=== PATIENT | male | born 1955 | race Caucasian/White ===

== ENCOUNTER 2019-03-19 15:29 | Inpatient (IN) | payer SELFPAY ==
[~2019-03-19] VITALS: Ht 185.4 cm; Wt 117.0 kg
[2019-03-19 15:35] VITALS: BP 172/95
[2019-03-19] MEDS ORDERED: NACL 0.9% 1,000 ML IV ONE ×2 (15:56→17:35)
[2019-03-19] MEDS ORDERED: MORPHINE SULFATE 4 MG/ML SYR IVP ONE (16:00)
[2019-03-19] MEDS ORDERED: FAMOTIDINE 20 MG/2 ML VIAL IVP ONE (16:00)
[2019-03-19] MEDS ORDERED: KETOROLAC 30 MG/ML VIAL IVP ONE (16:00)
[2019-03-19] MEDS ORDERED: ONDANSETRON 4 MG/2 ML VIAL IVP ONE (16:00)
[2019-03-19] MEDS ORDERED: GLYCOPYRROLATE 0.2 MG/ML VIAL IV ONE (16:05)
[2019-03-19 16:31] LABS: BASOPHILS % (AUTO) 0.1 % (0.0-2.0); HEMATOCRIT 50.2 % (36-52); HEMOGLOBIN 16.7 g/dL (12.0-18.0); LYMPHOCYTES # (AUTO) 0.6 K/uL (2.0-11.5); LYMPHOCYTES % (AUTO) 5.1 % (20.5-51.1); MEAN CORPUSCULAR HEMOGLOBIN 32 pg (27-31); MEAN CORPUSCULAR HGB CONC 33 g/dL (33-37); MEAN CORPUSCULAR VOLUME 97.6 fL (80-94); MONOCYTES # (AUTO) 0.7 K/uL (0.8-1.0); NEUTROPHILS # (AUTO) 10.4 K/uL (1.8-7.7); NEUTROPHILS % (AUTO) 88.8 % (42.2-75.2); PLATELET COUNT (AUTO) 211 K/uL (140-450); RED BLOOD CELL COUNT(AUTO) 5.14 MIL/uL (4.20-6.10); RED CELL DISTRIBUTION WIDTH 13.7 % (11.6-13.7); WHITE BLOOD COUNT (AUTO) 11.7 K/uL (4.8-10.8)
[2019-03-19 16:33] LABS: APPEARANCE,URINE CLEAR (CLEAR); BILIRUBIN,URINE 1+ (NEGATIVE); BLOOD, URINE 1+ (NEGATIVE); LEUKOCYTE ESTERASE ,URINE NEGATIVE (NEGATIVE); NITRITE, URINE NEGATIVE (NEGATIVE); PH,URINE 5.5 (5.0-9.0); UGLUCOSE NEGATIVE (NEGATIVE)
[2019-03-19 16:34] LABS: COLOR,URINE AMBER (YELLOW)
[2019-03-19 16:46] LABS: WBC,URINE 0 /HPF (0-5)
--- NOTE | 2019-03-19 16:50 | NUR ---
IV ESTABLISHED, LAB DRAWN, URINE SENT BY STUDENT. CONTINUOUS CARDIAC MONITORING INITIATED. EKG SHOWN TO OLIVIA. PT ASYMPTOMATIC AT PRESENT. MENTATION APPROPRIATE. COHERENT.
[2019-03-19 16:58] LABS: PROTHROMBIN TIME 10.2 secs (10.8-13.4)
[2019-03-19 17:00] LABS: ANION GAP 15.9 (8-16); CARBON DIOXIDE 25.5 mmol/L (21-32); CREATININE 1.4 mg/dL (0.7-1.3); POTASSIUM 4.4 mmol/L (3.5-5.1); TOTAL BILIRUBIN 3.1 mg/dL (0.0-1.0)
--- NOTE | 2019-03-19 17:13 | NUR ---
PT LEFT TO CT VIA RNEY
[2019-03-19] MEDS ORDERED: metroNIDAZOLE 500 MG/NS PREMIX 100 ML IV ONE (17:35)
[2019-03-19] MEDS ORDERED: NACL 0.9% 1,000 ML IV SCH (17:45)
[2019-03-19] MEDS ORDERED: ACETAMINOPHEN 325 MG TAB PO PRN (17:45)
[2019-03-19] MEDS ORDERED: HYDROcodone/APAP 5/325 MG 1 TAB TAB PO PRN (17:45)
[2019-03-19] MEDS ORDERED: MORPHINE SULFATE 2 MG/ML SYR IVP PRN (17:45)
[2019-03-19] MEDS ORDERED: ONDANSETRON 4 MG/2 ML VIAL IM/IVP PRN (17:45)
[2019-03-19] MEDS ORDERED: cefTRIAXone 1,000 MG VIAL ONE (17:48)
[2019-03-19] MEDS: NACL 0.9% 1,000 ML IV SCH ×2 (17:50→18:58)
[2019-03-19] MEDS ORDERED: METO25TA PO (17:56)
[2019-03-19] MEDS ORDERED: ORE25 PO (17:56)
[2019-03-19 18:08] LABS: BARBITURATE, URINE NEG. ng/ml (NEG <=200); BENZODIAZEPINE, URINE NEG. ng/mL (NEG <=200); CANNABINOID, URINE NEG. ng/mL (NEG <=50); COCAINE, URINE NEG. ng/mL (NEG <=300); OPIATE, URINE NEG. ng/mL (NEG <=2000); PHENCYCLIDINE SCREEN,URINE NEG. ng/mL (NEG <=25)
[2019-03-19 18:33] LABS: URIC ACID 6.5 mg/dL (2.6-7.2)
[2019-03-19 18:46] LABS: MAGNESIUM 1.8 mg/dL (1.8-2.4); PHOSPHORUS 3.2 mg/dL (2.5-4.9); THYROID STIMULATING HORMONE 1.07 uIU/mL (0.34-3.74)
--- NOTE | 2019-03-19 19:14 | NUR ---
CONTINUED ENSORED. TO KYLE. HANDLEY
--- NOTE | 2019-03-19 19:42 | NUR ---
PT APPEAR TO BE IN NO DISTRESS AT THIS TIME. PT C/O ABDOMINAL PAIN. PAIN 08/19. PT VSS. PT HR HIGH 40S. PT DENIES FATIGUE, DIZZINESS OR FEELS LIKE HE IS GOING TO PASS OUT. PT STATES NORMAL HR AROUND 50-60. PT DENIES N/V/D AT THIS TIME. FAMILY AT BEDSIDE. WAITING FOR ROOM TO BECOME AVAILABLE ON FLOOR.
[2019-03-19 20:00] VITALS: BP 154/73
--- NOTE | 2019-03-19 20:00 | NUR ---
RECEIVED PT FROM ER NURSE, FARIDA. PT CAME IN [facility] AND ABLE TO AMBULATE TO [facility] BED. NO SOB OR ANY RESPIRATORY DISTRESS NOTED. BREATHING EVEN AND UNLABORED. IV SITE ON LAC 20G PATENT, INTACT AND ASYMPTOMATIC. SKIN INTACT, WARM AND DRY TO TOUCH. MRSA SWAB DONE, VS CHECKED, BOARD UPDATED, ALL SAFETY MEASURE ARE MET. ORIENT ROOM TO PT INCLUDING HOW TO USE CALL LIGHT. BED IN LOW POSITION, CALL LIGHT WITHIN REACH.
--- NOTE | 2019-03-19 20:00 | NUR ---
Pt report given to EMMANUELLE GARVEY. Transfer of care at this time. PT TRANSFERED TO BED VIA WALK ASSIST.
--- NOTE | 2019-03-19 22:10 | NUR ---
PT SLEEPING IN BED COMFORTABLY. NO ACUTE DISTRESS NOTED.
--- NOTE | 2019-03-19 23:08 | NUR ---
PT C/O 6 ABD PAIN, GIVEN NORCO MD ORDERED. PT TOLERATED WELL. WILL CONTINUE TO MONITOR.
[2019-03-20] VITALS: BP 134/58
--- NOTE | 2019-03-20 00:10 | NUR ---
VS CHECKED, WITHIN PT'S BASELINE. WILL CONTINUE TO MONITOR.
[2019-03-20] MEDS: NACL 0.9% 1,000 ML IV SCH ×4 (02:33→20:38)
[2019-03-20] MEDS: KETOROLAC 30 MG/ML VIAL IVP SCH ×2 (02:38→08:17)
--- NOTE | 2019-03-20 02:38 | NUR ---
GIVEN TORADOL MD ORDERED. PT TOLERATED WELL.
[2019-03-20 04:00] VITALS: BP 142/71
[2019-03-20] MEDS: metroNIDAZOLE 500 MG/NS PREMIX 100 ML IV SCH ×3 (05:10→20:23)
--- NOTE | 2019-03-20 05:10 | NUR ---
GIVEN FLAGYL MD ORDERED. PT TOLERATED WELL.
--- NOTE | 2019-03-20 06:41 | NUR ---
PT SLEEPING IN BED. NO ACUTE DISTRESS NOTED.
[2019-03-20] MEDS ORDERED: LOSA100T51 PO (06:52)
[2019-03-20] MEDS ORDERED: METO100T14 PO (06:53)
[2019-03-20 07:09] LABS: BASOPHILS % (AUTO) 0.1 % (0.0-2.0); EOSINOPHILS % (AUTO) 0.1 % (0.0-4.0); HEMATOCRIT 47.4 % (36-52); HEMOGLOBIN 15.6 g/dL (12.0-18.0); LYMPHOCYTES # (AUTO) 1.2 K/uL (2.0-11.5); LYMPHOCYTES % (AUTO) 10.3 % (20.5-51.1); MEAN CORPUSCULAR HEMOGLOBIN 32 pg (27-31); MEAN CORPUSCULAR HGB CONC 33 g/dL (33-37); MONOCYTES # (AUTO) 0.9 K/uL (0.8-1.0); MONOCYTES % (AUTO) 7.8 % (1.7-9.3); NEUTROPHILS # (AUTO) 9.6 K/uL (1.8-7.7); NEUTROPHILS % (AUTO) 81.7 % (42.2-75.2); PLATELET COUNT (AUTO) 196 K/uL (140-450); RED BLOOD CELL COUNT(AUTO) 4.84 MIL/uL (4.20-6.10); WHITE BLOOD COUNT (AUTO) 11.8 K/uL (4.8-10.8)
[2019-03-20 07:15] LABS: ANION GAP 15.4 (8-16); CARBON DIOXIDE 24.5 mmol/L (21-32); CREATININE 1.3 mg/dL (0.7-1.3); POTASSIUM 4.9 mmol/L (3.5-5.1)
[2019-03-20 07:32] LABS: CHOL/HDL RATIO 7.1 (1-4.5)
--- NOTE | 2019-03-20 07:38 | NUR ---
RECEIVED PT FROM ROD FILLER RN FOR CONTINUITY OF CARE. PT IS AAOX4, COOPERATIVE. PT ABLE TO MAKE NEEDS KNOWN. PT GREAT HISTORIAN. PT ABLE TO AMBULATE. SKIN INTACT. EXPLAINED POC TO PT AND PT VERBALIZED UNDERSTANDING. ALL NEEDS CURRENTLY MET. WILL CONTINUE TO ROUND FREQUENTLY ON PT. BED IN LOW POSITION, CALL LIGHT WITHIN REACH.
[2019-03-20 08:00] VITALS: BP 158/87
[2019-03-20] MEDS: HYDROCHLOROTHIAZIDE 25 MG TAB PO SCH (08:16)
[2019-03-20] MEDS: PANTOPRAZOLE 40 MG INJ VIAL IVP SCH (08:17)
--- NOTE | 2019-03-20 08:50 | NUR ---
PATIENT HAS BEEN SCREENED AND CATEGORIZED MODERATE NUTRITION RISK. PATIENT WILL BE SEEN WITHIN 3-5 DAYS OF ADMISSION. 03/22/19 03/24/[address]
[2019-03-20] MEDS ORDERED: METOPROLOL 25 MG TAB PO SCH (09:00)
[2019-03-20] MEDS ORDERED: DEXTROSE 50% 50 ML SYR IVP PRN (09:00)
[2019-03-20] MEDS ORDERED: INSULIN LISPRO SLIDING SCALE 100 UNITS/ML VIAL SUBQ PRN (09:00)
[2019-03-20] MEDS ORDERED: KETOROLAC 30 MG/ML VIAL IVP PRN (09:00)
--- NOTE | 2019-03-20 09:41 | NUR ---
ADMINISTERED MORNING MEDS TO PT. PT TOLERATED WELL. ALL NEEDS MET. WILL CONTINUE TO ROUND FREQUENTLY ON PT. BED IN LOW POSITION, CALL LIGHT WITHIN REACH.
[2019-03-20] MEDS ORDERED: LOSARTAN 50 MG TAB PO SCH (10:00)
[2019-03-20] MEDS ORDERED: BLOOD GLUCOSE MONITORING 1 DEV DEV FS SCH (11:30)
--- NOTE | 2019-03-20 11:36 | NUR ---
PT RESTING IN BED READING BOOK. ALL NEEDS MET. PT DENIES PAIN OR DISTRESS AT THIS TIME. WILL CONTINUE TO ROUND FREQUENTLY ON PT.
[2019-03-20 12:00] VITALS: BP 151/66
[2019-03-20] MEDS: HYDROcodone/APAP 7.5/325 MG 1 TAB PO PRN ×2 (12:05→20:23)
--- NOTE | 2019-03-20 13:20 | NUR ---
DC PLANNING 63 YRS OLD MALE PT WAS ADMITTED FROM HOME WITH A DX OF CHOLECYSTITIS AND PANCREATITIS. PT HAS A HX OF HTN , HIATAL HERNIA AND HEPATOMEGALY . CT ABD SHOWS ACUTE PANCREATITIS LIPASE 30,900 . ADMINISTER IV FLAGYL AND ROCEPHIN ,IVF GI CONSULT WITH DR KENNEDY. SURGEON RECOMMENDED GI CONSULT AND PLAN TO LAP HUY POSSIBLE OPEN CHOLECYSTECTOMY. KEEP PT NPO , WAITING FOR GI CONSULT. CM TO FOLLOW. Addendum: 03/22/19 at 1020 by Kim Alvarez CM DC PLANNING LATE ENTRY 03/21/19 1400 CONTINUE IV ROCEPHIN AND FLAGYL , WAITING FOR GI CONSULT WITH DR SERNA Addendum: 03/22/19 at 1026 by Kim Alvarez DC PLANNING DR SERNA (GI) SEEN PATIENT RECOMMENDED SURGEON TO CONSIDER LAP HUY AND INTRAOPERATIVE CHOLANGIOGRAM AND IF PT NEEDS ERCP THAT COULD BE CONSIDERED AFTER SURGERY . CM TO FOLLOW
--- NOTE | 2019-03-20 13:42 | NUR ---
PT RESTING IN BED. ALL NEEDS MET. WILL CONTINUE TO ROUND FREQUENTLY ON PT.
--- NOTE | 2019-03-20 15:24 | NUR ---
PT ASLEEP. WILL CONTINUE TO ROUND FREQUENTLY ON PT.
[2019-03-20 16:00] VITALS: BP 145/80
--- NOTE | 2019-03-20 17:18 | NUR ---
PT SLEEPING. ALL NEED MET. WILL CONTINUE TO ROUND ON PT.
--- NOTE | 2019-03-20 19:25 | NUR ---
REPORT GIVEN TO QUALITY CLOTH TESTER RN FOR CONTINUATION OF CARE. BED IN LOW POSITION, PATIENT IS IN STABLE CONDITION, NO SIGNS OF DISTRESS.
--- NOTE | 2019-03-20 19:30 | NUR ---
RECEIVED BEDSIDE REPORT FROM DAY SHIFT NURSE FOR CONTINUITY OF CARE. PT IS AAOX4, COOPERATIVE. PT ABLE TO MAKE NEEDS KNOWN. PT ABLE TO AMBULATE. SKIN INTACT. IV SITE ON LAC, 20G, PATENT, INTACT, AND ASYMPTOMATIC, RUNNING FLUID MD ORDERED. EXPLAINED POC TO PT AND PT VERBALIZED UNDERSTANDING. ALL NEEDS CURRENTLY MET. WILL CONTINUE TO ROUND FREQUENTLY ON PT. BED IN LOW POSITION, CALL LIGHT WITHIN REACH.
--- NOTE | 2019-03-20 19:49 | NUR ---
ENDORSED PT TO DRYING FRAME OPERATOR FOR CONTINUITY OF CARE. PT IN STABLE CONDITION AT THIS TIME.
[2019-03-20 20:00] VITALS: BP 133/65
--- NOTE | 2019-03-20 20:23 | NUR ---
GIVEN FLAGYL MD ORDERED. PT C/O 09/19 ABD PAIN AND FEVER 100.7 GIVEN NORCO MD ORDERED. WILL RE ASSESS FOR FEVER.
--- NOTE | 2019-03-20 21:20 | NUR ---
CHECKED BT, 98.9. PT STATED HE FEELS BETTER.
--- NOTE | 2019-03-20 23:59 | NUR ---
VS CHECKED, WITHIN PT'S BASELINE. WILL CONTINUE TO MONITOR.
[2019-03-21] VITALS: BP 119/53
[2019-03-21] MEDS: HYDROcodone/APAP 7.5/325 MG 1 TAB PO PRN ×3 (01:50→23:37)
[2019-03-21] MEDS: NACL 0.9% 1,000 ML IV SCH ×4 (02:00→16:38)
--- NOTE | 2019-03-21 02:10 | NUR ---
PT SLEEPING IN BED. NO ACUTE DISTRESS NOTED.
--- NOTE | 2019-03-21 03:59 | NUR ---
VS CHECKED, WITHIN PT'S BASELINE, WILL CONTINUE TO MONITOR.
[2019-03-21 04:00] VITALS: BP 111/69
[2019-03-21] MEDS: metroNIDAZOLE 500 MG/NS PREMIX 100 ML IV SCH ×3 (05:47→20:22)
--- NOTE | 2019-03-21 05:47 | NUR ---
GIVEN FLAGYL MD ORDERED. PT TOLERATED WELL.
--- NOTE | 2019-03-21 06:41 | NUR ---
PT LYING IN BED. NO ACUTE DISTRESS NOTED. PT IN STABLE CONDITION.
[2019-03-21 07:00] LABS: BASOPHILS % (AUTO) 0.3 % (0.0-2.0); EOSINOPHILS # (AUTO) 0.1 K/uL (0-0.4); EOSINOPHILS % (AUTO) 0.8 % (0.0-4.0); HEMATOCRIT 45.5 % (36-52); HEMOGLOBIN 14.8 g/dL (12.0-18.0); LYMPHOCYTES # (AUTO) 1.2 K/uL (2.0-11.5); MEAN CORPUSCULAR HEMOGLOBIN 32 pg (27-31); MEAN CORPUSCULAR HGB CONC 33 g/dL (33-37); MEAN CORPUSCULAR VOLUME 98.2 fL (80-94); MONOCYTES # (AUTO) 1.6 K/uL (0.8-1.0); MONOCYTES % (AUTO) 10.6 % (1.7-9.3); NEUTROPHILS # (AUTO) 11.9 K/uL (1.8-7.7); NEUTROPHILS % (AUTO) 80.3 % (42.2-75.2); PLATELET COUNT (AUTO) 179 K/uL (140-450); RED BLOOD CELL COUNT(AUTO) 4.64 MIL/uL (4.20-6.10); RED CELL DISTRIBUTION WIDTH 13.4 % (11.6-13.7); WHITE BLOOD COUNT (AUTO) 14.8 K/uL (4.8-10.8)
--- NOTE | 2019-03-21 07:30 | NUR ---
RECEIVED PT FROM NIGHT NURSE. PT AAOX4 IN BED. DENIES PAIN, NO DISTRESS NOTED. RESPIRATIONS EVEN AND UNLABORED ON ROOM AIR. SKIN INTACT, AMBULATORY. IV IN PLACE PATENT AND ASYMPTOMATIC INFUSING PER ORDER IN L AC 20G. BED IN LOW POSITION, SAFETY MEASURES IN PLACE. CALL LIGHT WITHIN REACH. WILL CONTINUE TO MONITOR.
[2019-03-21 08:00] VITALS: BP 136/74
[2019-03-21 08:31] LABS: T4 (THYROXINE) 6.3 ug/dL (4.5-12.0)
[2019-03-21 08:31] LABS: HEPATITIS A ANTIBODY IGM Negative (Negative); HEPATITIS B CORE AB TOTAL Negative (Negative); HEPATITIS B SURFACE ANTIBODY Non Reactive (.); HEPATITIS B SURFACE ANTIGEN Negative (Negative)
[2019-03-21 08:42] LABS: ANION GAP 16.6 (8-16); CARBON DIOXIDE 23.3 mmol/L (21-32); CREATININE 1.3 mg/dL (0.7-1.3); POTASSIUM 3.9 mmol/L (3.5-5.1)
[2019-03-21] MEDS: PANTOPRAZOLE 40 MG INJ VIAL IVP SCH (09:38)
[2019-03-21] MEDS: HYDROCHLOROTHIAZIDE 25 MG TAB PO SCH (09:38)
[2019-03-21] MEDS: LOSARTAN 50 MG TAB PO SCH (09:39)
--- NOTE | 2019-03-21 09:43 | NUR ---
MEDICATIONS ADMINISTERED PER ORDER. PT TOLERATED WELL. NO DISTRESS NOTED, DENIES PAIN. WILL CONTINUE TO MONITOR.
[2019-03-21 11:08] LABS: ALBUMIN 3.1 g/dL (3.4-5.0); BILIRUBIN,DIRECT 0.4 mg/dL (0.0-0.3); TOTAL BILIRUBIN 1.8 mg/dL (0.0-1.0)
--- NOTE | 2019-03-21 11:51 | NUR ---
MEDICATIONS ADMINISTERED PER ORDER. PT TOLERATED WELL. NO DISTRESS NOTED. WILL CONTINUE TO MONITOR.
[2019-03-21 12:00] VITALS: BP 144/75
--- NOTE | 2019-03-21 14:29 | NUR ---
MEDICATIONS ADMINISTERED PER ORDER. PT TOLERATED WELL. NO DISTRESS NOTED. DENIES PAIN. WILL CONTINUE TO MONITOR.
--- NOTE | 2019-03-21 14:34 | NUR ---
Casing Mixer Note: Basic Screen: Yes High Risk DC Screen Sarah Ann: GAURANG Mcdaniel Relationship: Pre-Admission Living Arrangements: Lives with Other Prior ADL Independent Current Home Health Name/Tel: N/A Current DME/02 Name/Tel: N/A Current Hospice Name/Tel: N/A Current Dialysis Name/Tel: N/A Healthcare Decision Maker: Patient Advance Directive No - REFUSED Patient/Family Have Educational Needs No Information Taught: Advance Directive Person Taught: Patient Teaching Tools: Verbal Factors Affecting Learning: None Participation Level: Refused Evaluation: Verbalizes Understanding Needs Additional Education: No Discipline: Case Mgt/Social Svcs Tentative Discharge Plan/Destination: No Needs Identified Will require assistance post discharge: No Referred to Broach Grinder: No Tentative Discharge Plan Summary: Patient is a 63 y/o male admitted for abdominal pain. Patient has PMHX of HTN. Patient was admitted from temporary address in [place], [place] but is a resident of [place]. SW verified demographics with patient. Patiennt denies mental health history and substance abuse history. Patient stated he is residing in [place] temporarily due to a yazidi event. Patient's tentative plan after discharge is to return to [place] and to [place] thereafter. No further needs identified. Signature: RASHAAD Paredes Date: Mar 21, 2019 Time: 14:34
[2019-03-21 16:00] VITALS: BP 131/72
--- NOTE | 2019-03-21 16:18 | NUR ---
VITAL SIGNS MONITORED AT THIS TIME. PT IN STABLE CONDITION. DENIES PAIN. SAFETY MEASURES IN PLACE. CALL LIGHT WITHIN REACH. WILL CONTINUE TO MONITOR.
--- NOTE | 2019-03-21 18:25 | NUR ---
PT SITTING IN CHAIR. DENIES PAIN. NO DISTRESS NOTED. SAFETY MEASURES IN PLACE. CALL LIGHT WITHIN REACH. WILL CONTINUE TO MONITOR.
--- NOTE | 2019-03-21 19:00 | NUR ---
REPORT GIVEN TO NIGHT NURSE FOR CONTINUITY OF CARE.
--- NOTE | 2019-03-21 19:01 | NUR ---
REPORT RECEIVED FROM AM NURSE AT BEDSIDE. PT IN STABLE CONDITION. AAOX4. INTRODUCED SELF TO PT. BOARD UPDATED. PT HAS COMPLAINTS OF PAIN. WILL MEDICATE. NO SOB. AFEBRILE. PT IS AMBULATORY. IV SITE L AC 20G RUNNING NS@150ML/HR PATENT AND INTACT. SKIN WARM, DRY, AND INTACT WITH NO OPEN WOUNDS. BED LOCKED IN LOW POSITION. CALL ANDRADE WITHIN REACH. SAFETY PRECAUTION IN PLACE. ALL NEEDS MET AT THIS TIME.
--- NOTE | 2019-03-21 19:37 | NUR ---
NORCO GIVEN FOR 6/10 ABDOMINAL PAIN. PT TOLERATED WELL.
[2019-03-21 20:00] VITALS: BP 151/80
--- NOTE | 2019-03-21 20:22 | NUR ---
ANOOP HUNG AND RUNNING. PT TOLERATING WELL.
--- NOTE | 2019-03-21 22:00 | NUR ---
PT SLEEPING COMFORTABLY BUT AROUSABLE. NO S/S OF DISTRESS NOTED. TELE MONITORING. WILL CONTINUE TO MONITOR.
--- NOTE | 2019-03-21 23:37 | NUR ---
NORCO GIVEN FOR 6/10 ABDOMINAL PAIN. PT TOLERATED WELL.
[2019-03-22] VITALS: BP 136/83
--- NOTE | 2019-03-22 01:45 | NUR ---
PT SLEEPING COMFORTABLY BUT AROUSABLE. NO S/S OF DISTRESS NOTED. NO COMPLAINTS OF PAIN. NO SOB. AFEBRILE. WILL CONTINUE TO MONITOR.
--- NOTE | 2019-03-22 03:30 | NUR ---
PT SLEEPING COMFORTABLY BUT AROUSABLE. NO S/S OF DISTRESS NOTED. RESPIRATIONS EVEN, UNLABORED, AND WNL. WILL CONTINUE TO MONITOR.
[2019-03-22 04:00] VITALS: BP 120/72
[2019-03-22] MEDS: metroNIDAZOLE 500 MG/NS PREMIX 100 ML IV SCH ×3 (04:01→20:16)
--- NOTE | 2019-03-22 04:01 | NUR ---
ANOOP HUNG AND RUNNING. PT TOLERATING WELL.
--- NOTE | 2019-03-22 05:40 | NUR ---
PT SLEEPING COMFORTABLY BUT AROUSABLE. NO S/S OF DISTRESS NOTED. NO COMPLAINTS OF PAIN. NO SOB. AFEBRILE. WILL CONTINUE TO MONITOR.
--- NOTE | 2019-03-22 06:45 | NUR ---
PT SLEEPING COMFORTABLY IN BED BUT AROUSABLE. NO S/S OF DISTRESS NOTED. PT IN STABLE CONDITION.
[2019-03-22 06:50] LABS: BASOPHILS % (AUTO) 0.1 % (0.0-2.0); EOSINOPHILS # (AUTO) 0.2 K/uL (0-0.4); EOSINOPHILS % (AUTO) 1.7 % (0.0-4.0); HEMATOCRIT 41.6 % (36-52); HEMOGLOBIN 13.9 g/dL (12.0-18.0); LYMPHOCYTES # (AUTO) 1.1 K/uL (2.0-11.5); LYMPHOCYTES % (AUTO) 8.1 % (20.5-51.1); MEAN CORPUSCULAR HEMOGLOBIN 33 pg (27-31); MEAN CORPUSCULAR HGB CONC 33 g/dL (33-37); MEAN CORPUSCULAR VOLUME 97.8 fL (80-94); MONOCYTES # (AUTO) 1.4 K/uL (0.8-1.0); MONOCYTES % (AUTO) 10.3 % (1.7-9.3); NEUTROPHILS # (AUTO) 10.6 K/uL (1.8-7.7); NEUTROPHILS % (AUTO) 79.8 % (42.2-75.2); PLATELET COUNT (AUTO) 163 K/uL (140-450); RED BLOOD CELL COUNT(AUTO) 4.25 MIL/uL (4.20-6.10); RED CELL DISTRIBUTION WIDTH 13.4 % (11.6-13.7); WHITE BLOOD COUNT (AUTO) 13.3 K/uL (4.8-10.8)
--- NOTE | 2019-03-22 07:15 | NUR ---
PT IS ALERT AND ORIENTED X4, VERBALLY RESPONSIVE. IV INTACT AND PATENT TO LEFT AC 20G WITH IVF NS INFUSING @ 150ML/HR. NO S/S OF DISTRESS NOTED. CALL LIGHT WITHIN REACH.
[2019-03-22 07:45] LABS: ALBUMIN 2.6 g/dL (3.4-5.0); CARBON DIOXIDE 26.2 mmol/L (21-32); CREATININE 1.2 mg/dL (0.7-1.3); MAGNESIUM 1.5 mg/dL (1.8-2.4); POTASSIUM 4.2 mmol/L (3.5-5.1); TOTAL BILIRUBIN 1.7 mg/dL (0.0-1.0)
[2019-03-22 08:00] VITALS: BP 153/90
--- NOTE | 2019-03-22 09:00 | NUR ---
PT STILL NPO. PT AWAITING FOR SURGERY THIS AFTERNOON. PT IS ALERT AND ORIENTED X4. DENIES PAIN OR DISCOMFORT AT THIS TIME. CALL LIGHT WITHIN REACH. PT AMBULATED TO THE BATHROOM WITH STEADY GAIT.
[2019-03-22] MEDS: HYDROCHLOROTHIAZIDE 25 MG TAB PO SCH (09:19)
[2019-03-22] MEDS: PANTOPRAZOLE 40 MG INJ VIAL IVP SCH (09:20)
[2019-03-22] MEDS: LOSARTAN 50 MG TAB PO SCH (09:20)
--- NOTE | 2019-03-22 11:06 | NUR ---
PT PICKED UP BY OR SUPERVISOR VARNISH [facility] FOR [facility]GICAL PROCEDURE.
[2019-03-22] MEDS ORDERED: BUPIVACAINE-MPF/EPI 0.25% 30 ML VIAL INJ ONE (11:12)
[2019-03-22] MEDS ORDERED: MEPERIDINE 50 MG/ML SYR ONE (11:33)
[2019-03-22] MEDS ORDERED: MIDAZOLAM 2 MG/2 ML VIAL ONE (11:33)
[2019-03-22] MEDS ORDERED: fentaNYL 0.05 MG/ML VIAL ONE (11:33)
[2019-03-22] MEDS ORDERED: LACTATED RINGERS 1,000 ML IV SCH (12:17)
[2019-03-22] MEDS ORDERED: ONDANSETRON 4 MG/2 ML VIAL IVP PRN (12:20)
[2019-03-22] MEDS ORDERED: diphenhydrAMINE 50 MG/ML VIAL IVP PRN (12:20)
[2019-03-22] MEDS ORDERED: MEPERIDINE 25 MG/ML SYR IVP PRN (12:20)
[2019-03-22] MEDS ORDERED: HYDROmorphone 1 MG/ML AMP IVP PRN (12:20)
--- NOTE | 2019-03-22 13:37 | NUR ---
SPOKE WITH OR NURSE STEPHANIE.PT NOW IN PACU RECOVERY UNIT.
[2019-03-22 14:30] VITALS: BP 119/79
--- NOTE | 2019-03-22 14:30 | NUR ---
PT RETURNED FROM PACU RECOVERY. PT IS STABLE. Addendum: 03/22/19 at 1447 by Loida Martin RN IN ADDITION TO NOTES ABOVE: IV ANTIBIOTICS WILL BE STARTED LATE DUE TO PATIENT BEING OFF UNIT DURING IT'S SCHEDULED TIME.
[2019-03-22] MEDS: DEXT 5% / NACL 0.45% 1,000 ML IV SCH ×2 (15:06→23:30)
[2019-03-22 16:00] VITALS: BP 140/78
--- NOTE | 2019-03-22 16:30 | NUR ---
PT AWAKE AND ALERT. PT DENIES PAIN. PT S/P LAP CHOLECYSTECTOMY. NO S/S OF DISTRESS NOTED. PATIENT VS STABLE. AT BEDSIDE. NEEDS MET AT THIS TIME.
--- NOTE | 2019-03-22 18:31 | NUR ---
PT REMAINS IN STABLE CONDITION. PT ALERT AND ORIENTED X4. AMBULATES TO THE RESTROOM WITH STEADY GAIT.
--- NOTE | 2019-03-22 19:20 | NUR ---
REPORT RECEIVED FROM AM NURSE AT BEDSIDE. PT IN STABLE CONDITION. AAOX4. INTRODUCED SELF TO PT. BOARD UPDATED. NO COMPLAINTS OF PAIN. NO SOB. AFEBRILE. PT IS AMBULATORY. PT HAD CHOLECYSTECTOMY TODAY@1330. IV SITE L AC 20G RUNNING D5 1/2NS@100ML/HR PATENT AND INTACT. SKIN WARM, DRY, AND NOT INTACT DUE TO LAP HUY INCISIONS X4 IN THE ABDOMEN HELD BY GLUE. BED LOCKED IN LOW POSITION. CALL ANDRADE WITHIN REACH. SAFETY PRECAUTION IN PLACE. ALL NEEDS MET AT THIS TIME.
[2019-03-22 20:00] VITALS: BP 122/86
--- NOTE | 2019-03-22 20:16 | NUR ---
ANOOP HUNG AND RUNNING. PT TOLERATING WELL.
--- NOTE | 2019-03-22 21:19 | NUR ---
RECIEVED PT ON RA SPO2 98% BS CLR. PT STATES HE IS SUPPOSED TO LEAVE TOMORROW AND DOES NOT FEEL HE NEEDS IS THERAPY SO HE REFUSED. NO RESP DISTRESS NOTED, WILL CONT. TO MONITOR.
--- NOTE | 2019-03-22 22:10 | NUR ---
PT AWAKE AND ALERT WATCHING TV IN BED. NO S/S OF DISTRESS NOTED. WILL CONTINUE TO MONITOR.
[2019-03-23] VITALS: BP 152/75
--- NOTE | 2019-03-23 00:10 | NUR ---
PT AWAKE AND ALERT IN BED WATCHING VIDEOS ON HIS PHONE. NO S/S OF DISTRESS NOTED. NO COMPLAINTS OF PAIN. NO SOB. AFEBRILE. WILL CONTINUE TO MONITOR.
--- NOTE | 2019-03-23 01:30 | NUR ---
PT SLEEPING COMFORTABLY BUT AROUSABLE. NO S/S OF DISTRESS NOTED. NO COMPLAINTS OF PAIN. NO SOB. AFEBRILE. WILL CONTINUE TO MONITOR.
[2019-03-23 04:00] VITALS: BP 118/65
[2019-03-23] MEDS: metroNIDAZOLE 500 MG/NS PREMIX 100 ML IV SCH (04:09)
--- NOTE | 2019-03-23 04:10 | NUR ---
ANOOP HUNG AND RUNNING. PT TOLERATING WELL.
[2019-03-23 06:38] LABS: BASOPHILS % (AUTO) 0.1 % (0.0-2.0); HEMATOCRIT 44.2 % (36-52); HEMOGLOBIN 14.5 g/dL (12.0-18.0); LYMPHOCYTES # (AUTO) 0.8 K/uL (2.0-11.5); LYMPHOCYTES % (AUTO) 5.6 % (20.5-51.1); MEAN CORPUSCULAR HEMOGLOBIN 32 pg (27-31); MEAN CORPUSCULAR HGB CONC 33 g/dL (33-37); MEAN CORPUSCULAR VOLUME 98.4 fL (80-94); MONOCYTES # (AUTO) 0.8 K/uL (0.8-1.0); MONOCYTES % (AUTO) 5.4 % (1.7-9.3); NEUTROPHILS # (AUTO) 12.7 K/uL (1.8-7.7); NEUTROPHILS % (AUTO) 88.9 % (42.2-75.2); PLATELET COUNT (AUTO) 230 K/uL (140-450); RED BLOOD CELL COUNT(AUTO) 4.49 MIL/uL (4.20-6.10); RED CELL DISTRIBUTION WIDTH 13.3 % (11.6-13.7); WHITE BLOOD COUNT (AUTO) 14.3 K/uL (4.8-10.8)
--- NOTE | 2019-03-23 06:40 | NUR ---
PT SLEEPING COMFORTABLY BUT AROUSABLE. NO S/S OF DISTRESS NOTED. PT IN STABLE CONDITION.
[2019-03-23 07:11] LABS: ALBUMIN 3.1 g/dL (3.4-5.0); ANION GAP 13.5 (8-16); CARBON DIOXIDE 25.8 mmol/L (21-32); CREATININE 1.2 mg/dL (0.7-1.3); MAGNESIUM 1.7 mg/dL (1.8-2.4); PHOSPHORUS 2.9 mg/dL (2.5-4.9); POTASSIUM 3.3 mmol/L (3.5-5.1); TOTAL BILIRUBIN 0.9 mg/dL (0.0-1.0)
--- NOTE | 2019-03-23 07:38 | NUR ---
Received report from retail shift manager nurse. Pt is in bed in stable condition. Call light in reach.
[2019-03-23 08:00] VITALS: BP 149/106
[2019-03-23] MEDS ORDERED: ORE25 PO (09:00)
[2019-03-23] MEDS ORDERED: POTASSIUM CHLORIDE 10 MEQ TABER PO SCH (09:00)
[2019-03-23] MEDS ORDERED: LOSA100T51 PO (09:00)
[2019-03-23] MEDS ORDERED: MAGNESIUM OXIDE 400 MG TAB PO SCH (09:00)
[2019-03-23] MEDS ORDERED: ACET-8386 PO (09:09)
[2019-03-23] MEDS: HYDROCHLOROTHIAZIDE 25 MG TAB PO SCH (09:15)
[2019-03-23] MEDS: LOSARTAN 50 MG TAB PO SCH (09:16)
[2019-03-23] MEDS: DEXT 5% / NACL 0.45% 1,000 ML IV SCH (09:30)
--- NOTE | 2019-03-23 10:17 | NUR ---
Pt is in bed in stable condition. Call light in reach.
--- NOTE | 2019-03-23 11:30 | NUR ---
Pt was discharged today. Pt was in stable condition at discharge. Pt walked with steady gait. Pt alert at discharge. No complains of pain at discharge. Pt's belonging with patient. Pt's discharge instructions given to patient. Pt's prescription given to patient. Pt will follow up with primary care. Pt was accompanied by upon discharge. IV removed. Catheter intact. No active bleeding noted. Discharge photographs taken. ID band removed.
== END 2019-03-23 12:50 | disposition home or self-care (01) | DRG 417 ==
LOC: MED 15:29 → MTU 17:45
PROVIDERS: ADMIT General Practice; ATTEND General Practice
PROC: BF101ZZ Fluoroscopy of Bile Ducts using Low Osmolar Contrast (ICD-10-PCS; 2019-03-22)
PROC: 0FT44ZZ Resection of Gallbladder, Percutaneous Endoscopic Approach (ICD-10-PCS; principal; 2019-03-22 13:30)
DX: K85.10 Biliary acute pancreatitis without necrosis or infection (principal); N17.0 Acute kidney failure with tubular necrosis; E44.0 Moderate protein-calorie malnutrition; F43.9 Reaction to severe stress, unspecified; E83.42 Hypomagnesemia; E87.6 Hypokalemia; E66.9 Obesity, unspecified; I10 Essential (primary) hypertension; K80.20 Calculus of gallbladder without cholecystitis without obstruction; E80.6 Other disorders of bilirubin metabolism; K82.8 Other specified diseases of gallbladder; R74.0 Nonspecific elevation of levels of transaminase and lactic acid dehydrogenase [LDH]; K44.9 Diaphragmatic hernia without obstruction or gangrene; R16.0 Hepatomegaly, not elsewhere classified; R31.9 Hematuria, unspecified; E11.9 Type 2 diabetes mellitus without complications; Z79.899 Other long term (current) drug therapy; Z68.30 Body mass index [BMI] 30.0-30.9, adult
CPT/HCPCS: 36415; 71045; 74300; 76705; 80048; 80053; 80076; 80305; 81001; 82150; 82247; 82248; 82977; 83036; 83690; 83735; 83880; 84100; 84436; 84443; 84484; 84550; 85025; 85610; 85730; 86704; 86706; 86708; 86709; 86803; 86886; 86900; 86901; 87081; 87340; 88304; 93005; 96365; 96375; 99285; C1887; C9113; J0696; J1885; J2175; J2250; J2270; J2405; J3010; J3490; J7030; J7060; Q0092